=== PATIENT | female | born 1960 | race Caucasian/White ===

== ENCOUNTER 2019-10-15 14:52 | Outpatient (CLI) | payer BC ==
--- NOTE | 2019-10-15 16:08 | MRI ---
MRI lumbar spine noncontrast HISTORY: Low back pain with right leg radiculopathy. FINDINGS: Regressor not available for direct correlation, therefore the lowest lumbar type vertebra w ill be designated as L5, with the remainder numbered accordingly. There is desiccation of all of the intervertebral discs and multilevel discogenic endplate changes of the bone marrow. Vertebral bod y heights and alignment are maintained. T12-L1: Central canal and neural foramina are patent. L1-2: Minimal disc bulge. Osteophytosis of the facets. Central canal and neural foramina are patent. L2-3: Mild osteophytosis. Central canal and neural foramina are patent. L3-4: Prominent osseous hypertrophy of the facets. Central canal and right neural foramen are patent. Mild to moderate stenosis of the left neural foramen. L4-5: Mild posterior disc bulge. Thecal sac is patent. Degenerative changes of the facets. Mild right and moderate left foraminal stenoses. L5-S1: There is right posterolateral disc protrusion with inferior extension contacting the origin of the right S1 nerve root. Osteophytosis of the facets. Thecal sac is patent. Moderate bilateral foraminal stenoses. IMPRESSION: Right posterolateral disc protrusion at the lumbosacral junction, most greatly affecting the right S1 nerve root. Clinical correlation regarding the right S1 dermatome is required. Consider pain management evaluation. Multilevel degenerative changes throughout the lower lumbar spine as detailed above, including forami nal stenosis most pronounced on the left at the L4-5 level. Correlation regarding the left L4 dermatome is required.
== END 2019-10-15 14:53 | disposition home or self-care (01) ==
LOC: TBSIIMAG 14:52
PROVIDERS: ATTEND Family Medicine
DX: M51.17 Intervertebral disc disorders with radiculopathy, lumbosacral region (principal); M47.26 Other spondylosis with radiculopathy, lumbar region; M48.061 Spinal stenosis, lumbar region without neurogenic claudication
CPT/HCPCS: 72148

== ENCOUNTER 2019-10-20 15:21 | Inpatient (IN) | payer BC ==
[2019-10-20] MEDS ORDERED: HYDROcodone/Acetaminophen 7.5/325 mg Tablet PO PRN (16:24)
[2019-10-20] MEDS ORDERED: traMADol HCl 50 MG TAB PO PRN (16:24)
[2019-10-20] MEDS ORDERED: Acetaminophen 325 MG TAB PO PRN (16:24)
[2019-10-20] MEDS ORDERED: tiZANidine HCl 4 MG TAB PO PRN (16:24)
[2019-10-20 16:26] VITALS: BMI 32.5
[2019-10-20 16:43] LABS: #Basophils 0.1 thou/uL (0.0-0.2); #Eosinphils 0.2 thou/uL (0.0-0.7); #Lymphocytes 2.6 thou/uL (1.20-3.40); #Monocytes 0.9 thou/uL (0.11-0.59); #Neutrophils 8.5 thou/uL (1.40-6.50); %Basophils 0.8 % (0.0-1.0); %Eosinophils 1.4 % (0.0-10.0); %Lymphocytes 21.5 % (21.0-51.0); %Monocytes 7.1 % (0.0-10.0); %Neutrophils 69.2 % (42.0-75.0); Hemoglobin 16.2 g/dL (12.0-16.0); Mean Corpuscular HGB CONC 33.6 g/dL (32.0-36.0); Mean Corpuscular Hemoglobin 32.7 pg (27.0-31.0); Mean Corpuscular Volume 97.2 fL (78.0-98.0); Mean Platelet Volume 6.7 fL (7.4-10.4); Platelet Count 273 thou/uL (130-400); RBC Distribution Width 11.7 % (11.5-14.5); Red Blood Cell (RBC) Count 4.95 mill/uL (4.20-5.40); White Blood Cell (WBC) Count 12.2 thou/uL (4.8-10.8)
[2019-10-20 16:50] LABS: INR-International Normal Ratio 0.9; PTT 26.3 SEC (22.9-36.1); Prothrombin Time 11.9 SEC (12.0-14.7)
[2019-10-20 17:05] LABS: Anion Gap 8 mmol/L (10-20); BUN (Urea Nitrogen) 21 mg/dL (9.8-20.1); Calc. Creatinine Clearance 112 mL/min (70-130); Calcium 9.4 mg/dL (7.8-10.44); Carbon Dioxide 35 mmol/L (23-31); Chloride 100 mmol/L (98-107); Estimated GFR-MDRD 82; Glucose 105 mg/dL (80-115); Sodium 138 mmol/L (136-145)
[2019-10-20] MEDS: Sodium Chloride 0.9% 1,000 ML IV SCH (18:15)
[2019-10-20] MEDS: Gabapentin 300 MG CAP PO PRN (18:16)
[2019-10-20] MEDS ORDERED: HYDROcodone/Acetaminophen 10/325 mg Tablet PO PRN (20:56)
[2019-10-20] MEDS: Morphine 2 MG/ML SYRINGE SLOW IVP PRN (21:40)
[2019-10-21] MEDS: Sodium Chloride 0.9% 1,000 ML IV SCH ×2 (05:29→20:19)
[2019-10-21] MEDS: HYDROcodone/Acetaminophen 10/325 mg Tablet PO PRN ×2 (05:30→21:20)
[2019-10-21] MEDS: Morphine 2 MG/ML SYRINGE SLOW IVP PRN ×2 (06:37→08:54)
[2019-10-21] MEDS: Gabapentin 300 MG CAP PO PRN (06:38)
[2019-10-21] MEDS ORDERED: Morphine 2 MG/ML SYRINGE SLOW IVP PRN ×2 (09:24→10:29)
[2019-10-21] MEDS ORDERED: Rocuronium Bromide 10 MG/ML (10ML VIAL) ONE (09:42)
[2019-10-21] MEDS ORDERED: Glycopyrrolate 0.2 MG/ML 5 ML SYRINGE ONE (09:42)
[2019-10-21] MEDS ORDERED: Ondansetron PF 4 MG/2 ML Vial ONE (09:42)
[2019-10-21] MEDS ORDERED: Lidocaine 1% PF 5 ML VIAL ONE (09:42)
[2019-10-21] MEDS ORDERED: Dexamethasone 20 MG/5 ML VIAL ONE (09:42)
[2019-10-21] MEDS ORDERED: PROPOFOL 200 MG/20 ML VIAL ONE (09:42)
[2019-10-21] MEDS ORDERED: Fentanyl 100 MCG/2 ML VIAL ONE ×2 (12:44→14:00)
[2019-10-21] MEDS ORDERED: Thrombin 5000 UNITS/5 ML VIAL ONE (13:42)
[2019-10-21] MEDS ORDERED: HYDROmorphone 2 MG/ML VIAL ONE (15:20)
[2019-10-21] MEDS: CEFAZOLIN 2 GM in Premix Bag 1 BAG IVPB SCH (21:20)
[2019-10-22] MEDS: CEFAZOLIN 2 GM in Premix Bag 1 BAG IVPB SCH (05:42)
--- NOTE | 2019-10-22 08:37 | OP ---
DATE OF PROCEDURE: 10/21/2019 SURGICAL INSTRUMENT MECHANIC: Magalis Anders PA-C. PREPROCEDURE DIAGNOSES: 1. Low back and right leg pain. 2. Large right L5-S1 disk extrusion. 3. Right S1 radiculopathy. POSTPROCEDURE DIAGNOSES: 1. Low back and right leg pain. 2. Large right L5-S1 disk extrusion. 3. Right S1 radiculopathy. PROCEDURES PERFORMED: 1. Right L5-S1 hemilaminotomy, foraminotomy, and diskectomy. 2. Use of operative microscope for microdissection. DESCRIPTION OF PROCEDURE: After informed consent was obtained from the patient, the patient was brought to the OR. Proper patient, pause, and identification were carried out. She was placed under excellent general endotracheal anesthesia and positioned prone on the OR table. All appropriate points were padded. We identified the L5-S1 dorsal spines. A linear magda was made over this region. This area was sterilely cleansed, prepared, and draped. Proper patient, pause, and identification were carried out. The wound was then opened with a combination of sharp, monopolar, and blunt dissection. The right L5-S1 segment exposed. Localization film confirmed area of interest. We then performed the right L5-S1 hemilaminotomy and foraminotomy. The microscope was brought in for microdissection diskectomy. Working on the microscope, we found a large disk extrusion caudally, migrated out of the L5-S1 segment, compressing the traversing S1 nerve root. This was right in the region of the dorsal root ganglion, which would certainly explain her dysesthetic pain. We removed multiple fragments and explored the disk space proper as well. Copious irrigation occurred throughout as did maximizing hemostasis. The wound was then closed in anatomic layers following sprinkling of vancomycin powder. The patient emerged from anesthesia. Job ID: [id number]
--- NOTE | 2019-10-22 11:12 | PRG ---
DATE OF SERVICE: 10/22/2019 Ms. Anderson is postoperative day 1 from right L5-S1 hemilaminotomy, foraminotomy, and diskectomy. She has had resolution in her leg pain. She has done very well with it neurologically, intact strength. She is ambulating, voiding on her own, and tolerating orals. We will plan for dismissal. Job ID: [id number]
[2019-10-22 11:13] VITALS: BP 138/85; TEMP 97.8
--- NOTE | 2019-10-22 13:41 | EKG ---
Test Reason : ROUTINE Blood Pressure : / mmHG Vent. Rate : 074 BPM Atrial Rate : 074 BPM P-R Int : 148 ms QRS Dur : 096 ms QT Int : 380 ms P-R-T Axes : 067 -07 017 degrees QTc Int : 421 ms Sinus rhythm with Premature atrial complexes Incomplete right bundle branch block Borderline ECG No previous ECGs available Confirmed by STEPHON ROSS (2) on 10/22/2019 1:41:13 PM Referred By: SHEILA Confirmed By:STEPHON ROSS
== END 2019-10-22 12:44 | disposition home or self-care (01) | DRG 520 ==
LOC: SURG A 15:21
PROVIDERS: ADMIT Surgery; ATTEND Surgery
PROC: 0SB40ZZ Excision of Lumbosacral Disc, Open Approach (ICD-10-PCS; principal; 2019-10-20)
DX: M51.17 Intervertebral disc disorders with radiculopathy, lumbosacral region (principal); M79.604 Pain in right leg; M48.061 Spinal stenosis, lumbar region without neurogenic claudication
CPT/HCPCS: 36415; 76000; 80048; 85025; 85610; 85730; 93005; 93010; J0690; J1100; J1170; J2001; J2270; J2405; J2704; J3010; J3370; J3490

== ENCOUNTER 2022-10-18 12:39 | Outpatient (CLI) | payer BC | END 2022-10-18 12:40 | disposition home or self-care (01) | LOC: TBSIIMAG 12:39 | PROVIDERS: ATTEND Orthopaedic Surgery | DX: M23.91 Unspecified internal derangement of right knee (principal); M25.861 Other specified joint disorders, right knee; M22.41 Chondromalacia patellae, right knee; S80.01XA Contusion of right knee, initial encounter ==